=== PATIENT | female | born 1990 | race Caucasian/White ===

== ENCOUNTER 2016-11-29 11:40 | Day surgery (SDC) | payer MEDICAID ==
[~2016-11-29] VITALS: Ht 157.5 cm; Wt 55.3 kg
[2016-11-29] MEDS ORDERED: PRENATAL PO (12:37)
[2016-11-29] MEDS ORDERED: LACTATED RINGERS 1,000 ML IV SCH (13:00)
[2016-11-29] MEDS ORDERED: SODIUM CHLORIDE 0.9% 1,000 ML IV SCH (13:34)
[2016-11-29] MEDS ORDERED: HYDROMORPHONE HCL/PF 2MG/ML CPJ IV PRN (13:45)
[2016-11-29] MEDS ORDERED: ONDANSETRON HCL 4MG/2ML VIAL IV PRN ×2 (13:45→14:45)
[2016-11-29] MEDS ORDERED: MEPERIDINE HCL/PF 25MG/ML CPJ IV PRN (13:45)
[2016-11-29] MEDS ORDERED: MIDAZOLAM HCL 2 MG/2 ML VIAL ONE (14:06)
[2016-11-29] MEDS ORDERED: PROPOFOL 200MG/20ML VIAL IV ONE (14:08)
[2016-11-29] MEDS ORDERED: CEFAZOLIN SODIUM 1000MG/VIAL ONE (14:08)
[2016-11-29] MEDS ORDERED: LIDOCAINE HCL 1% 20ML VIAL (Pyxis) INJ ONE (14:08)
[2016-11-29] MEDS ORDERED: FENTANYL CITRATE/PF 50MCG/ML 2ML VIAL ONE (14:14)
[2016-11-29] MEDS ORDERED: ONDANSETRON HCL 4MG/2ML VIAL ONE (14:17)
[2016-11-29] MEDS ORDERED: METOCLOPRAMIDE HCL 10MG/2ML VIAL ONE (14:17)
[2016-11-29] MEDS ORDERED: DEXAMETHASONE 4MG/ML 1ML VIAL ONE (14:17)
[2016-11-29] MEDS ORDERED: OXYTOCIN 10 UNITS/ML 1ML ONE (14:23)
[2016-11-29] MEDS ORDERED: SILVER NITRATE APPLICATOR STICK TOP SCH (14:30)
[2016-11-29] MEDS ORDERED: HYDROCODONE/ACETAMINOPHEN 5/325MG TABLET PO PRN ×2 (14:45)
[2016-11-29] MEDS ORDERED: IBUP-1510 PO (15:52)
== END 2016-11-29 16:10 | disposition home or self-care (01) ==
LOC: OR 11:40
PROVIDERS: ATTEND Obstetrics & Gynecology
DX: O02.1 Missed abortion (principal)
CPT/HCPCS: 59812; 88305; J0690; J1100; J2250; J2405; J2765; J3010; J3490; J7120; J2704

== ENCOUNTER 2024-01-13 00:44 | Emergency (ER) | payer MEDICAID ==
[~2024-01-13] VITALS: Ht 162.6 cm; Wt 63.0 kg
[~2024-01-13 00:44] MED LIST: IBUP-2030 PO; PRENATAL PO
[2024-01-13 01:00] VITALS: BP 134/86; PULSE 100; RESP 20; TEMP 98.3; O2SAT 99
== END 2024-01-13 03:09 | disposition home or self-care (01) ==
LOC: ER 00:44
DX: F41.0 Panic disorder [episodic paroxysmal anxiety] (principal)
CPT/HCPCS: 99283